=== PATIENT | female | born 1960 | race Caucasian/White ===

== ENCOUNTER 2021-01-31 21:15 | Emergency (ER) | payer BC ==
[~2021-01-31] VITALS: Ht 157.5 cm; Wt 65.8 kg
[2021-01-31 22:20] LABS: RED BLOOD COUNT 4.52 M/UL (4.00-5.10); WHITE BLOOD COUNT 3.8 K/UL (4.5-11.0)
== END 2021-01-31 23:42 | disposition home or self-care (01) ==
LOC: ER1 21:15
PROVIDERS: Physician Assistant
DX: Z23 Encounter for immunization (principal); U07.1 COVID-19; I10 Essential (primary) hypertension
CPT/HCPCS: 80048; 85025; 99284; M0243